=== PATIENT | male | born 1965 | race African-American/Black ===

== ENCOUNTER 2017-06-28 10:06 | Day surgery (SDC) | payer BC ==
[2017-06-28] VITALS (16 sets, daily range): BP systolic 149–180; BP diastolic 75–99; PULSE 64–86; RESP 11–20
[~2017-06-28] VITALS: Ht 182.9 cm; Wt 82.2 kg
[~2017-06-28 10:06] MED LIST: CEFAZOLIN 2 GM/50 ML (PMX) 50 ML IVPB SCH; SOD CHLORIDE 0.9% 1,000 ML IV SCH
--- NOTE | 2017-06-28 11:15 | RADRPT ---
PROCEDURE: XR Chest AP portable CLINICAL INDICATION: Preop TECHNIQUE: An AP portable radiograph of the chest was submitted. COMPARISON: None. FINDINGS: Support Hardware: None Cardiovascular: The cardiovascular silhouette appears unremarkable. Lung Gonzalez: The lung gonzalez appear clear with no nodule, alveolar infiltrate, or interstitial promi nence evident. Pleural Spaces: No pneumothorax or pleural effusion is identified. Osseous Structures: The osseous structures appear intact. Soft Tissues: The soft tissues appear unremarkable. IMPRESSION: Unremarkable portable chest. Physician Anthony Date Time Electronically viewed and signed by Sonido Pinon Physician on 06/28/2017 11:15 RH/
[2017-06-28] MEDS ORDERED: LIDOCAINE 2% (MDV) 20 ML INJ ONE (14:30)
[2017-06-28] MEDS ORDERED: BUPIVACAINE 0.25% (MPF) 30 ML INJ ONE (14:30)
[2017-06-28] MEDS ORDERED: BUPIVACAINE 0.5% (SDV) 30 ML INJ ONE (14:30)
[2017-06-28] MEDS ORDERED: MIDAZOLAM 1 MG/ML 2 ML INJ ONE (14:31)
[2017-06-28] MEDS ORDERED: FENTAnyl 50 MCG/ML VIAL ONE (14:32)
[2017-06-28] MEDS ORDERED: CEFAZOLIN 1 GM INJ ONE (14:32)
[2017-06-28] MEDS ORDERED: KETOROLAC 30 MG INJ ONE (14:52)
[2017-06-28] MEDS ORDERED: OXYCODONE/ACETAMINOPHEN (5/325) TAB PO PRN ×2 (15:00)
[2017-06-28] MEDS ORDERED: ONDANSETRON 4 MG INJ IV PRN (15:00)
[2017-06-28] MEDS ORDERED: hydrALAzine 20 MG INJ IV ONE (15:00)
[2017-06-28] MEDS ORDERED: HYDROmorphONE (0.2 MG/ML) 10ML SYG IV PRN ×3 (15:00)
[2017-06-28] MEDS ORDERED: LIDOCAINE 2% (MDV) 20 ML INJ INJ ONE (15:01)
[2017-06-28] MEDS ORDERED: PROPOFOL 20 ML ONE (15:04)
[2017-06-28] MEDS ORDERED: BUPIVACAINE 0.5% 30 ML VIAL INJ ONE (15:06)
--- NOTE | 2017-06-28 15:14 | OPR ---
Date/Time of Note Date/Time of Note DATE: 06/28/17 TIME: 15:11 Operative Report Procedure Date: Jun 28, 2017 Preoperative Diagnosis right intramuscular back mass Postoperative Diagnosis right intramuscular back mass Operation/Procedure Performed 1. excision of right intramuscular back mass 3 cm mass 8 cm incision 2. localized adjacent tissue transfer with the use of skin flaps 16 sq cm defect 3. therapeutic injection of subcutaneous local anesthesia Surgeon see signature line Infrastructure Director none Anesthesia Type: MAC Estimated Blood Loss: 0 - 10 ml's Transfusion none Specimen back mass Grafts/Implants none Complications none Pt Condition Post Procedure: stable Indications This is a 52-year-old male with a right back mass. She requests surgical excision. Risks alternatives benefits and percent were discussed the patient. Patient expressed understanding consents to the operation. Procedure Description Patient taken to the OR and prepped and draped in usual sterile fashion. Surgical timeout is performed. IV antibiotics were given. Transverse incision is made over the back mass after local anesthesia was subcutaneously infiltrated all along the mass. Dissection cautery was carried onto the mass the mass is intramuscular mass to muscle split the mass is resected off of the muscle. Hemostasis established. Due to tissue defect localized adjacent tissue transfer with use of skin flaps was performed. Multilayer closure with interrupted 3-0 Vicryl and skin aditya. Additional therapeutic subcutaneous local anesthesia was injected at the end of the case. Dry dressings were applied Serafin ANGELA Jun 28, 2017 15:14
[2017-06-28] MEDS ORDERED: HYDROCODONE/APAP (5/325) TAB PO ONE (15:30)
[2017-06-28] MEDS ORDERED: LABETALOL HCL 20MG INJ IV PRN (15:30)
[2017-06-28] MEDS ORDERED: hydrALAzine 20 MG INJ IV PRN (15:30)
--- NOTE | 2017-06-29 14:09 | RADRPT ---
Vent Rate: 68 bpm RR Interval: 0 msec NC Interval: 144 msec QRS Duration: 90 msec QT Interval: 384 msec QTC Interval: 408 msec P-R-T [place]: 66 - 21 - 61 degrees Normal sinus rhythm Cannot rule out Anterior infarct , age undetermined Abnormal ECG Electronically Signed By: Marcos Guy [id number]
--- NOTE | 2017-06-29 14:09 | RADRPT ---
Vent Rate: 68 bpm RR Interval: 0 msec TN Interval: 144 msec QRS Duration: 90 msec QT Interval: 384 msec QTC Interval: 408 msec P-R-T [place]: 66 - 21 - 61 degrees Normal sinus rhythm Cannot rule out Anterior infarct , age undetermined Abnormal ECG Electronically Signed By: Marcos Guy [id number]
--- NOTE | 2017-06-29 14:09 | RADRPT ---
Vent Rate: 68 bpm RR Interval: 0 msec NE Interval: 144 msec QRS Duration: 90 msec QT Interval: 384 msec QTC Interval: 408 msec P-R-T [place]: 66 - 21 - 61 degrees Normal sinus rhythm Cannot rule out Anterior infarct , age undetermined Abnormal ECG Electronically Signed By: Marcos Guy [id number]
== END 2017-06-28 17:11 | disposition home or self-care (01) ==
LOC: SDS 10:06
PROVIDERS: ATTEND Surgery
DX: D17.1 Benign lipomatous neoplasm of skin and subcutaneous tissue of trunk (principal); I10 Essential (primary) hypertension
CPT/HCPCS: 14001; 71010; 80053; 85025; 85610; 85730; 88307; 93005; J0360; J0690; J1885; J2250; J3010; Z7512; Z7610